=== PATIENT | female | born 1990 | race African-American/Black ===

== ENCOUNTER 2016-05-31 18:16 | Emergency (ER) | payer OTHER ==
[~2016-05-31] VITALS: Ht 177.8 cm; Wt 72.6 kg
[2016-05-31 18:37] VITALS: BP 117/78
[2016-05-31] MEDS ORDERED: BENADRYL25 M3 PO (18:37)
[2016-05-31 18:41] VITALS: BP 117/78
--- NOTE | 2016-05-31 22:07 | Emergency Room Report ---
History of Present Illness General Chief Complaint: Skin Rash/Abscess Source: Patient Present Illness HPI 26YOF with 1 week generalized body itch and rash. Denies associated fever/ chills, vesicles, blisters. Feels well otherwise. Changed detergent 1 week ago. No new pets or soaps. Allergies: Coded Allergies: PENICILLIN G (Verified Allergy, Unknown, 05/31/16) Patient History Past Medical History: none Past Surgical History: none Pertinent Family History: none Social History: Denies: alcohol use, drug use, smoking Last Menstrual Period: 05/13/16 Now: No Immunizations: UTD Reviewed Nursing Documentation: PMH: Agreed, PSxH: Agreed Nursing Documentation-PMH Past Medical History: No History, Except For Hx Asthma: Yes Review of Systems All Other Systems: negative except mentioned in HPI Physical Exam Vital Signs Date Time Temp Pulse Resp B/P Pulse Ox O2 Delivery O2 Flow Rate FiO2 05/31/16 18:26 98.6 69 15 117/78 100 Room Air Sp02 EP Interpretation: reviewed, normal General Appearance: normal inspection, well appearing, no apparent distress, alert Head: atraumatic ENT: normal ENT inspection, hearing grossly normal, normal voice Neck: normal inspection, full range of motion, supple, no bony tend Respiratory: normal inspection, lungs clear, normal breath sounds, no respiratory distress, no retraction, no wheezing Cardiovascular #1: regular rate, rhythm, no edema Gastrointestinal: normal inspection, normal bowel sounds, non tender, soft, no guarding, no hernia Genitourinary: no CVA tenderness Musculoskeletal: normal inspection, back normal, normal range of motion, Pierre' s Sign negative Neurologic: normal inspection, alert, oriented x3, responsive, telephone collector III-XII nml as tested, motor strength/tone normal, speech normal Psychiatric: normal inspection, judgement/insight normal, mood/affect normal Skin: other - multiple areas of 1cm macules, some oval shaped on back, torso/ chest/abdomen Medical Decision Making Diagnostic Impression: Primary Impression: Rash and other nonspecific skin eruption ER Course Contact dermatitis vs pityriasis rosea Advised re-wash clothes, sheets in former detergent Benadryl as needed for itch PMD followup Reassured it will resolve Last Vital Signs Date Time Temp Pulse Resp B/P Pulse Ox O2 Delivery O2 Flow Rate FiO2 05/31/16 18:41 98.6 63 15 117/78 100 Room Air Status: improved Disposition: HOME, SELF-CARE Condition: Improved Scripts Diphenhydramine HCl (Benadryl) 25 Mg Capsule 25 MG PO BID for itch, rash for 7 Days, #30 CAP Prov: ADELA CAVAZOS M.D. 05/31/16 Ref[facility]: [facility],REFERRING (PCP) Patient Instructions: Rash, Pityriasis Rosea Additional Instructions: - You have either contact dermatitis from new detergent in which case you need to re-wash all your clothes/sheets OR pityriasis which is caused by a virus and will resolve on its own in a couple weeks. - Take benadryl as needed for itch - Return to ER if rash worsens, you develop fever or blisters ADELA CAVAZOS M.D. May 31, 2016 22:07
== END 2016-05-31 18:40 | disposition home or self-care (01) ==
LOC: EMR 18:39
DX: R21 Rash and other nonspecific skin eruption (principal); J45.909 Unspecified asthma, uncomplicated; Z88.0 Allergy status to penicillin
CPT/HCPCS: 99283

== ENCOUNTER 2016-06-05 20:11 | Emergency (ER) | payer OTHER ==
[~2016-06-05] VITALS: Ht 177.8 cm; Wt 73.5 kg
[~2016-06-05 20:11] MED LIST: BENADRYL25 M3 PO
[2016-06-05 20:55] VITALS: BP 118/74
[2016-06-05] MEDS ORDERED: PREDNISONE20 MG ORAL (21:05)
[2016-06-05 22:02] VITALS: BP 118/74
--- NOTE | 2016-06-06 13:41 | Emergency Room Report ---
History of Present Illness General Chief Complaint: Skin Rash/Abscess Source: Patient Present Illness HPI Patient is a 26-year-old female presented for generalized rash. Patient gradual onset of symptoms. Patient had been seen previously for similar type symptoms. Patient had been started on Benadryl. She was noted to have multiple purpuric areas to her trunk. She had no lesions noted on her palms or soles. She had some improvement with Benadryl in terms the itching however rash continued to progress.She denied any difficulty breathing. She denied any fever Allergies: Coded Allergies: PENICILLIN G (Verified Allergy, Unknown, 05/31/16) Patient History Past Medical History: see triage record Last Menstrual Period: May 13, 2016 Now: No Reviewed Nursing Documentation: PMH: Agreed, PSxH: Agreed Nursing Documentation-PMH Past Medical History: No Stated History Hx Asthma: Yes Review of Systems All Other Systems: negative except mentioned in HPI Physical Exam Vital Signs Date Time Temp Pulse Resp B/P Pulse Ox O2 Delivery O2 Flow Rate FiO2 06/05/16 20:28 98.4 74 14 115/70 100 Room Air General Appearance: well appearing, no apparent distress, alert, GCS 15 Head: normocephalic, atraumatic ENT: hearing grossly normal, normal voice Neck: full range of motion, supple Respiratory: no respiratory distress, speaking full sentences Musculoskeletal: no calf tenderness Neurologic: normal inspection, alert, oriented x3, responsive, normal gait Psychiatric: mood/affect normal Skin: other - generalized patchy scaling with truncal involvement, no palm or sole involvement Medical Decision Making Diagnostic Impression: Primary Impression: Pityriasis ER Course Patient presented for skin rash. Differential diagnosis included was not limited to pityriasis rosea, eczema, contact dermatitis, viral rash among others. Patient's benign exam and does not appear to require any further imaging or laboratory testing at this time. The patient presented to pityriasis. Patient was given prednisone for itching. The she is advised to have recheck with primary care physician next 2-3 days. Last Vital Signs Date Time Temp Pulse Resp B/P Pulse Ox O2 Delivery O2 Flow Rate FiO2 06/05/16 22:02 98.3 78 15 118/74 100 Room Air Status: improved Disposition: HOME, SELF-CARE Condition: Stable Scripts Prednisone* (PREDNISONE*) 20 Mg Tablet 20 MG ORAL DAILY, #10 TAB 0 Refills Prov: Topher Tovar 06/05/16 Referrals: [facility],REFERRING (PCP) Patient Instructions: Topher Lane Jun 06, 2016 13:41
== END 2016-06-05 22:03 | disposition home or self-care (01) ==
LOC: EMR 21:44
DX: L21.8 Other seborrheic dermatitis (principal); J45.909 Unspecified asthma, uncomplicated; Z88.0 Allergy status to penicillin
CPT/HCPCS: 81025; 99283

== ENCOUNTER 2017-02-26 08:32 | Emergency (ER) | payer OTHER ==
[~2017-02-26] VITALS: Ht 177.8 cm; Wt 69.9 kg
[~2017-02-26 08:32] MED LIST changes: +PREDNISONE20 MG ORAL
--- NOTE | 2017-02-26 09:04 | Emergency Room Report ---
History of Present Illness General Chief Complaint: Upper Extremity Injury Source: Patient Present Illness HPI 26-year-old female presents with pain to the distal tip of right middle finger after actually punched glass window yesterday, but did not break the glass. Patient unable to flexDIP of right middle finger. States glass did not break. Does not have pain to other fingers or other part of hand. Allergies: Coded Allergies: PENICILLIN G (Verified Allergy, Unknown, 05/31/16) Patient History Past Medical History: none Past Surgical History: none Pertinent Family History: none Social History: Denies: smoking, alcohol use, drug use Now: No Immunizations: UTD Reviewed Nursing Documentation: PMH: Agreed, PSxH: Agreed Nursing Documentation-PMH Hx Asthma: Yes Review of Systems All Other Systems: negative except mentioned in HPI Physical Exam Vital Signs Date Time Temp Pulse Resp B/P (MAP) Pulse Ox O2 Delivery O2 Flow Rate FiO2 02/26/17 08:40 97.3 88 20 106/59 99 Sp02 EP Interpretation: reviewed, normal General Appearance: normal inspection, well appearing, no apparent distress, alert, GCS 15, non-toxic Head: normocephalic, atraumatic Eyes: bilateral eye PERRL, bilateral eye EOMI ENT: normal ENT inspection, hearing grossly normal, normal pharynx, no angioedema, normal voice, TMs + canals normal, uvula midline, moist mucus membranes Neck: normal inspection, full range of motion, supple, thyroid normal, no meningismus, no bony tend Respiratory: normal inspection, lungs clear, normal breath sounds, no rhonchi, no respiratory distress, no retraction, no accessory muscle use, no wheezing, speaking full sentences Cardiovascular #1: regular rate, rhythm, no edema, no JVD, normal capillary refill Gastrointestinal: normal inspection, normal bowel sounds, non tender, soft, no mass, no peritonitis, non-distended, no guarding, no hernia, no pulsatile mass Genitourinary: no CVA tenderness Musculoskeletal: normal inspection, back normal, normal range of motion, no calf tenderness, pelvis stable, Pierre's Sign negative, other - Right middle finger: Tenderness to distal phalanx, patient unable to flex at the DIP Neurologic: normal inspection, alert, oriented x3, responsive, plier worker III-XII nml as tested, motor strength/tone normal, cerebellar normal, normal gait, speech normal Psychiatric: normal inspection, judgement/insight normal, mood/affect normal, no suicidal/homicidal ideation, no delusions Skin: normal inspection, normal color, no rash Lymphatic: normal inspection, no adenopathy Medical Decision Making Diagnostic Impression: Primary Impression: Finger fracture, right Qualified Codes: S62.662A - Nondisplaced fracture of distal phalanx of right middle finger, initial encounter for closed fracture ER Course 26-year-old female with nondisplaced fracture of base of distal phalanx of right middle finger seen on ER review of x-ray. Motrin given in ER Splint placed over DIP Advise close followup with hand surgeon jany Vu with DDX: Plan: Obtain labs, ua, ucx, ucg, CXR, EKG ER course: Patient has remained stable during ED stay. Disposition: Patient is to be discharged to home. Prescriptions given are motrin Patient is instructed to follow up with their Hand physician in 2-3 days Strict return precautions discussed with patient such as fever, chills, worsening/severe pain, nausea, vomiting, which may indicate severe illness. Patient verbalizes understanding and agrees with plan. Please note that this Emergency Department Report was dictated using [employer]chan[employer]el[employer] technology software, occasionally this can lead to erroneous entry secondary to interpretation by the dictation equipment Other X-Ray Diagnostic Results Other X-Ray Diagnostic Results : X-Ray ordered: Right hand # of Views/Limited Vs Complete: 3 View Indication: Pain EP Interpretation: Yes Interpretation: no dislocation, no soft tissue swelling, other - Distal phalanx base fx Electronically Signed by: Dr Ayush Cavazos MD Last Vital Signs Date Time Temp Pulse Resp B/P (MAP) Pulse Ox O2 Delivery O2 Flow Rate FiO2 02/26/17 08:40 97.3 88 20 106/59 99 Status: improved Scripts Ibuprofen* (MOTRIN*) 600 Mg Tablet 600 MG ORAL THREE TIMES A DAY for pain' for 7 Days, #30 TAB 0 Refills Prov: AYUSH CAVAZOS M.D. 02/26/17 Referrals: [facility],REFERRING (PCP) AYUSH CAVAZOS M.D. Feb 26, 2017 09:04
[2017-02-26 09:12] VITALS: BP 106/59
--- NOTE | 2017-02-26 09:21 | Diagnostic Imaging Report ---
Indication: Pain, trauma Technique: 3 views right hand Comparison: none Findings: There is a corner fracture of the medial base of the third distal phalanx. This is nondisplaced, does involve the articular surface. No other acute fractures. No dislocations. The joint spaces are preserved Impression: Positive for third distal phalangeal base fracture Findings discussed by phone with Dr. Mckeon in the emergency room at the time of interpretation
[2017-02-26] MEDS ORDERED: IBUPROFEN600 MG ORAL (09:26)
[2017-02-26 09:39] VITALS: BP 111/69
== END 2017-02-26 09:36 | disposition home or self-care (01) ==
LOC: EMR 08:45
DX: S62.662A Nondisplaced fracture of distal phalanx of right middle finger, initial encounter for closed fracture (principal); J45.909 Unspecified asthma, uncomplicated; Z88.0 Allergy status to penicillin; W22.09XA Striking against other stationary object, initial encounter; Y92.9 Unspecified place or not applicable
CPT/HCPCS: 99283

== ENCOUNTER 2019-04-23 00:33 | Emergency (ER) | payer OTHER ==
[~2019-04-23] VITALS: Ht 177.8 cm; Wt 65.3 kg
[~2019-04-23 00:33] MED LIST changes: +IBUPROFEN600 MG ORAL
[2019-04-23 00:45] VITALS: BP 121/74
--- NOTE | 2019-04-23 00:45 | NUR ---
ED Nurse Note: Patient walked in to ED c/o bed bugs bites started this evening. Reports itchy bups on her back. Not in any distress. VSS. ERMD at bedside.
[2019-04-23] MEDS ORDERED: TRIAMCINOLONE A15 G2 TP (00:50)
[2019-04-23] MEDS ORDERED: IBUPROFEN600 MG ORAL (00:50)
[2019-04-23] MEDS ORDERED: BENADRYL25 M3 PO (00:50)
[2019-04-23 00:53] VITALS: BP 121/74
--- NOTE | 2019-04-23 00:53 | NUR ---
ED Nurse Note: Pt cleared by ERMD for discharge. DC instructions/prescription was given and explained to pt and verbalized understanding of teachings. All medical deviecs such as ID band removed. Pt is AAO x4, ambulatory and left with all personal belongings.
--- NOTE | 2019-04-23 00:54 | Emergency Room Report ---
History of Present Illness General Chief Complaint: Skin Rash/Abscess Source: Patient Present Illness HPI Disclaimer: Please note that this report is being documented using [employer] technology. This can lead to erroneous entry secondary to incorrect interpretation by the dictating instrument. HPI: 28-year-old female presents for evaluation of bug bites. Patient states she was sleeping somewhere new today and woke up to find multiple bugs crawling on her skin. She notes she was bitten multiple times on the left side of the back. Notes significant itching. Denies skin breakdown. Took several pictures. They appear to be bedbugs. Denies throat closure, wheezing, nausea, vomiting, diarrhea, lightheadedness, chest pain or other changes in her health. Allergies: Coded Allergies: PENICILLIN G (Verified Allergy, Unknown, 05/31/16) Patient History Last Menstrual Period: 03/2019 Nursing Documentation-[facility] Hx Asthma: Yes Review of Systems All Other Systems: negative except mentioned in HPI Physical Exam Vital Signs Date Time Temp Pulse Resp B/P (MAP) Pulse Ox O2 Delivery O2 Flow Rate FiO2 04/23/19 00:39 98.1 75 16 121/74 (90) 100 Room Air General: Awake and alert, no acute distress HEENT: NC/AT. EOMI. Resp: Normal work of breathing Skin: Intact. There are multiple small raised erythematous circular lesions smaller than 1 cm across over the left side of the back. No overlying breakdown , no ulceration. Nikolsky sign negative. No evidence of mucosal involvement. No necrosis, no fluctuance. MSK: Normal tone and bulk. Moving all extremities. No obvious deformity. Neuro: Awake and alert. Mentating appropriately Medical Decision Making Diagnostic Impression: Primary Impression: Bed bug bite ER Course 28-year-old female presents for evaluation of multiple bug bites consistent with bug bite infestation. Occurred today. Pictures are consistent with bedbugs. Will treat symptomatically with triamcinolone cream, diphenhydramine and ibuprofen. And provided instructions on eradication. She will sleep somewhere else tonight. And return with new or worsening symptoms. We will follow-up with PMD. Last Vital Signs Date Time Temp Pulse Resp B/P (MAP) Pulse Ox O2 Delivery O2 Flow Rate FiO2 04/23/19 00:45 98.1 75 16 121/74 100 Room Air Disposition: HOME, SELF-CARE Condition: Stable Scripts Triamcinolone Acetonide (Triamcinolone Acetonide 0.1% Oint*) 15 Gm Oint...g. 1 GR TP NEEDED PRN for Itching, #15 GM Prov: Tommy Mary MD 04/23/19 Ibuprofen* (MOTRIN*) 600 Mg Tablet 600 MG ORAL THREE TIMES A DAY for pain' for 7 Days, #30 TAB 0 Refills Prov: Tommy Mary MD 04/23/19 Diphenhydramine HCl (Benadryl) 25 Mg Capsule 25 MG PO BID for itch, rash for 7 Days, #30 CAP Prov: Tommy Mary MD 04/23/19 Referrals: Sherry [facility]. [facility] Patient Instructions: Bedbugs Additional Instructions: Use the medicated cream for control of itching and discomfort. Follow the instructions provided here and discharge paperwork for removing bedbugs. If he can sleep somewhere new to you notice not infested do so until bedbugs are fully removed. Return with any new or worsening symptoms. Tommy Mary MD Apr 23, 2019 00:54
== END 2019-04-23 00:53 | disposition home or self-care (01) ==
LOC: EMR 00:51
DX: S20.462A Insect bite (nonvenomous) of left back wall of thorax, initial encounter (principal); W57.XXXA Bitten or stung by nonvenomous insect and other nonvenomous arthropods, initial encounter; Y92.9 Unspecified place or not applicable; Z88.0 Allergy status to penicillin
CPT/HCPCS: 99282